=== PATIENT | male | born 1960 | race Asian ===

== ENCOUNTER 2024-04-19 14:31 | Outpatient (CLI) | payer OTHER, SELFPAY ==
--- NOTE | ~2024-04-19 | CT_ITS ---
EXAMINATION:CT lung screening DATE: 04/19/2024 14:51 INDICATION: Nicotine dependence, unspecified. Current smoker with 20 pack year history. TECHNIQUE: Computed tomography (CT) of the chest was performed without intravenous contrast. Automate d exposure control and iterative reconstruction technique were employed. The dose-length product (DLP ) was 92.01 mGy-cm. COMPARISON: None. FINDINGS: There is mild emphysema. There is a 4 mm nodule in right middle lobe. There is a 4 mm nodul e in right lower lobe. There are a few nodules in left lung measuring up to 4 mm. No pleural effusion . The heart size is normal. No pericardial effusion. There are coronary artery calcifications. There is mild bilateral gynecomastia. There is mild thoracic spondylosis. IMPRESSION: 1. Lung-RADS category 2: Benign appearance or behavior. Continue annual screening with noncontrast lo w-dose chest CT in 12 months. Reviewed, dictated and finalized at location A. DESIGNER IMPRESSION: 1. Lung-RADS category 2: Benign appearance or behavior. Continue annual screeni ng with noncontrast low-dose chest CT in 12 months.
== END 2024-04-19 14:32 | disposition home or self-care (01) ==
LOC: MICIMG 14:33
PROVIDERS: PCP Student in an Organized Health Care Education/Training Program; Visit Provider Student in an Organized Health Care Education/Training Program
DX: Z12.2 Encounter for screening for malignant neoplasm of respiratory organs (principal); F17.210 Nicotine dependence, cigarettes, uncomplicated
CPT/HCPCS: 71271

== ENCOUNTER 2024-07-16 00:45 | Day surgery (SDC) | payer OTHER, SELFPAY ==
[2024-07-08 14:19] VITALS: BMI 31.1
--- OUTSIDE RECORDS SUMMARY | 2024-07-16 00:49 | XMS_ITS | Clinical Summary ---
Author Organization [facility] [address] Address [facility] [place] [address] Care Team Providers Care Manager Systems Name Role Phone Unknown, Notinfile Primary Care Provider Unavail able Allergies No known active allergies Medications methylPREDNISol one (MEDROL DOSEPACK) 4 mg DosepackIndicat ions:Acute lower respiratory infection Take 6 tabs on day 1, reduce dose by 1 daily until prescription is complete. 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 Gender Identity Not on file Sexual Orientation Not on file Obstetrics History Last Filed Vital Signs Vital Sign Reading Time Taken Comments Blood Pressure 120/80 03/23/2024 12:45 PM FOOD SCIENCE TECHNICIAN Pulse 82 03/23/2024 12:45 PM FOOD SCIENCE TECHNICIAN Temperature 36.7 C (98.1 F) 03/23/2024 12:45 PM FOOD SCIENCE TECHNICIAN Respiratory Rate 20 03/23/2024 12:45 PM FOOD SCIENCE TECHNICIAN Oxygen Saturation 100% 03/23/2024 12:45 PM FOOD SCIENCE TECHNICIAN Inhaled Oxygen Concentration - - Weight 78.9 kg (174 lb) 03/23/2024 12:45 PM FOOD SCIENCE TECHNICIAN Height - - Body Mass Index - - Plan of Treatment Health Maintenance Due Date Last Done Comments Colon Cancer Screening-Colonoscopy 1962 Depression Screening 1962 Hepatitis C Screening 1960 Prostate Cancer Screening-PSA 1962 DTaP/Tdap/Td Vaccine (1 - Tdap) 1973 Hepatitis B Screening 02/20/1980 Regular Well Visit/Exam 18-64 02/20/1980 Covid-19 Vaccine (3 - 2023- season) 2024 08/01/2020, 07/07/2020 Zoster Vaccine Completed 11/23/2023, 08/22/2023 Influenza Vaccine Completed 01/13/2024, , 04/16/2022, Additional history exists Pneumococcal vaccine <65 Aged Out No longer eligible based on patient's age to complete this topic Insurance [facility] [address] Care Teams Manager Systems Relationship Specialty Start Date End Date Unknown, Notinfile PCP - General 03/23/24
--- OUTSIDE RECORDS SUMMARY | 2024-07-16 00:49 | XMS_ITS | Referral Summary ---
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 Gender Identity Not on file Sexual Orientation Not on file Last Filed Vital Signs Vital Sign Reading Time Taken Comments Blood Pressure 120/80 03/23/2024 12:45 PM BRUISE TRIMMER Pulse 82 03/23/2024 12:45 PM BRUISE TRIMMER Temperature 36.7 C (98.1 F) 03/23/2024 12:45 PM BRUISE TRIMMER Respiratory Rate 20 03/23/2024 12:45 PM BRUISE TRIMMER Oxygen Saturation 100% 03/23/2024 12:45 PM BRUISE TRIMMER Inhaled Oxygen Concentration - - Weight 78.9 kg (174 lb) 03/23/2024 12:45 PM BRUISE TRIMMER Height - - Body Mass Index - - Plan of Treatment Not on file [facility] Care Teams Director Of Student Services Relationship Specialty Start Date End Date Unknown, Notinfile PCP - General 03/23/24
[2024-07-16 12:34] VITALS: BP 128/94; PULSE 72; RESP 16; TEMP 36.2; O2SAT 98
[2024-07-16] MEDS: LACTATED RINGERS 1,000 ML 150 ML IV CONT (12:44)
--- NOTE | 2024-07-16 12:50 | WPDANESEPPF ---
Anes - Initial Pre Proc Eval Procedure: Operation Date: 07/16/24 14:00 Proposed Procedures p Colonoscopy - Damaso Calix MD Date/Time: 07/16/24 12:50 Surgeon: Damaso Calix MD Pre Op Diagnosis: fecal abn Patient Data Age: 64 Gender: M Height: 1.57 m Weight: 76.5 kg Last Vital Signs Temp 36.2 C L 07/16/24 12:34 Pulse 72 07/16/24 12:34 Resp 16 07/16/24 12:34 BP 128/94 H 07/16/24 12:34 Pulse Ox 98 07/16/24 12:34 O2 Del Method Room Air 07/16/24 12:34 Allergies Allergy/AdvReac Type Severity Reaction Status Date / Time No Known Allergies Allergy Verified 07/16/24 12:33 Home Medications ?Medication ?Instructions ?Recorded ?Confirmed ?Type No Home Medications 04/23/23 07/16/24 History Patient hx anesthesia problems: none Family hx anesthesia problems: none Results Review: All pre-operative results and documents have been reviewed as part of the pre-operative evaluation. [facility] [place] Family History Family History Father , At age 60 Lung cancer Mother COVID-19 Social History Social History Social History: Smoking packs per day: 0.25 Smoking cigarettes per day: 5.0 Years smoked: 30 Smoking pack-years: 7.50 Smoking status: Current every day smoker Tobacco type: cigarettes Alcohol intake: current Alcohol use details: Occasionally Substance use: never Substance use type: does not use Lack of Transportation: No Lack of Food: Never True Current Housing: I Have Housing Concerned About Future Housing: No Difficulty Paying Gas/Electric Bills: No Difficulty Paying for Meds: No Currently Unemployed: No Education: Don't Know Difficulty w/ Childcare or Family Care: No Living arrangements: with family Occupation/Education: occupation 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 Gender identity (if verbalized by the patient): Male Sexual Orientation (if Verbalized by the Patient): Straight or Heterosexual Spiritual care concerns: No Anes - Eval Final PreProcedure Day of Procedure 07/16/24 12:50 Patient weight: obese Heart: regular rate and rhythm Lungs: clear to auscultation Airway: Mallampati scale class II Neurological: alert and oriented Last oral intake: >/= 8 hours ASA classification: II Emergent: no Anesthetic plan: proceed Anesthesia type and monitoring: general GIVS and standard monitoring Results Review: All pre-operative results and documents have been reviewed as part of the pre-operative evaluation. Informed Consent: The patient's anesthetic plan and its attendant risks and benefits were discussed with the patient/family/POA. Questions were solicited and answers provided to the satisfaction of the patient/family/POA.
--- NOTE | 2024-07-16 13:05 | PM.HPGS ---
History of Present Illness History of Present Illness Consent: Risks, benefits, and alternatives have been discussed and questions answered. Patient agrees to proceed with procedure. Chief complaint: fecal abn Narrative: Alexander Meeks is a 64 year old male here for first colonoscopy, + cologuard Review of Systems Review of Systems: All systems reviewed & are unremarkable except as noted in HPI and below PMFSH Past Medical History Medical History (Updated 07/16/24 @ 13:05 by Damaso Calix MD) Positive colorectal cancer screening using Cologuard test Family History Family History Father , At age 60 Lung cancer Mother COVID-19 Social History Social History Social History: Smoking packs per day: 0.25 Smoking cigarettes per day: 5.0 Years smoked: 30 Smoking pack-years: 7.50 Smoking status: Current every day smoker Tobacco type: cigarettes Alcohol intake: current Alcohol use details: Occasionally Substance use: never Substance use type: does not use Lack of Transportation: No Lack of Food: Never True Current Housing: I Have Housing Concerned About Future Housing: No Difficulty Paying Gas/Electric Bills: No Difficulty Paying for Meds: No Currently Unemployed: No Education: Don't Know Difficulty w/ Childcare or Family Care: No Living arrangements: with family Occupation/Education: occupation 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 Gender identity (if verbalized by the patient): Male Sexual Orientation (if Verbalized by the Patient): Straight or Heterosexual Spiritual care concerns: No Meds Home Medications and Allergies Home Medications ?Medication ?Instructions ?Recorded ?Confirmed ?Type No Home Medications 04/23/23 07/16/24 History Allergies Allergy/AdvReac Type Severity Reaction Status Date / Time No Known Allergies Allergy Verified 07/16/24 12:33 Vital Signs Vital Signs - 24 hr 07/16/24 12:34 Temperature 97.2 F L Pulse Rate 72 Respiratory Rate 16 Blood Pressure 128/94 H Pulse Oximetry 98 Oxygen Delivery Room Air Exam Const: General: comfortable and no acute distress HENMT: Face/Nose/Sinus: Normal nares present Eyes: General: appearance normal, both eyes and all related structures Neck: Neck: no JVD Resp: Auscultation: clear to auscultation bilaterally Cardio: Rate: regular rate Rhythm: regular rhythm GI: Inspection: non-distended GI Palp: Yes Soft to palpation Skin: General skin exam: normal color Neuro: General: gait normal Speech: normal speech Extrem: General: normal to inspection Psych: Mental Status: mental status grossly normal Assessment and Plan Assessment and plan (1) Positive colorectal cancer screening using Cologuard test: Code(s): R19.5 - Other fecal abnormalities Status: Acute Assessment and Plan: colonoscopy
[2024-07-16 13:32] VITALS: BP 87/55; PULSE 55; RESP 16; O2SAT 99
[2024-07-16 13:42] VITALS: BP 89/64; PULSE 51; RESP 14; O2SAT 100
[2024-07-16 13:52] VITALS: BP 100/59; PULSE 53; RESP 18; O2SAT 100
== END 2024-07-16 14:05 | disposition home or self-care (01) ==
PROVIDERS: PCP Student in an Organized Health Care Education/Training Program; Referring Provider Student in an Organized Health Care Education/Training Program; Visit Provider Internal Medicine Gastroenterology
PROC: 0DJD8ZZ Inspection of Lower Intestinal Tract, Via Natural or Artificial Opening Endoscopic (ICD-10-PCS; CPT 45378; principal; 2024-07-16 14:00)
DX: R19.5 Other fecal abnormalities (principal); D12.2 Benign neoplasm of ascending colon; D12.5 Benign neoplasm of sigmoid colon; D12.8 Benign neoplasm of rectum; K63.5 Polyp of colon; F17.210 Nicotine dependence, cigarettes, uncomplicated; E66.9 Obesity, unspecified; Z68.30 Body mass index [BMI] 30.0-30.9, adult
CPT/HCPCS: 45385; 88305; J2704; J7120